=== PATIENT | female | born 1985 | race Two or more races ===

== ENCOUNTER 2020-01-01 18:01 | Emergency (ER) | payer OTHER ==
[~2020-01-01] VITALS: Ht 175.3 cm; Wt 77.1 kg
[~2020-01-01 18:01] MED LIST: MOTRIN800 MG PO
== END 2020-01-01 22:07 | disposition home or self-care (01) ==
LOC: ER 18:01
DX: J06.9 Acute upper respiratory infection, unspecified (principal); Z20.828 Contact with and (suspected) exposure to other viral communicable diseases